=== PATIENT | male | born 1990 | race Caucasian/White ===

== ENCOUNTER 2024-06-15 17:05 | Emergency (ER) | payer SELFPAY ==
[2024-06-15 17:16] VITALS: BP 134/70; BMI 21.5
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
[2024-06-15] MEDS: SUBUTEX 4 MG SL (18:03)
== END 2024-06-15 18:09 ==
LOC: EMR 17:05
PROVIDERS: EMERGENCY PHYSICIAN Emergency Medicine
DX: Z02.89 Encounter for other administrative examinations (principal); S52.251A Displaced comminuted fracture of shaft of ulna, right arm, initial encounter for closed fracture; Y08.89XA Assault by other specified means, initial encounter; Z65.3 Problems related to other legal circumstances; Z53.29 Procedure and treatment not carried out because of patient's decision for other reasons
CPT/HCPCS: 99283; 29105; 73090; 73130

== ENCOUNTER 2025-02-20 11:09 | Inpatient (IN) | payer OTHER, SELFPAY ==
[2025-02-20] VITALS (27 sets, daily range): BP systolic 116–175; BP diastolic 66–107
--- NOTE | 2025-02-20 07:26 | ED.GENMED ---
History of Present Illness
General
Chief Complaint: Withdrawal Symptoms
Source: patient
Exam Limitations: clinical condition and altered mental status
Time Seen by Provider: 02/20/25 07:04
Nursing documentation reviewed up to this point in time: agreed with
History of Present Illness
History of Present Illness:
34-year-old male fentanyl 10-12 bags day
None for 48 hours, lives on the streets in [place] brought locally by his friends mother looking to get help
Past History
Past History
ED Past Medical History: None (He denies any medical history)
ED Past Surgical History: None
Social History
Alcohol: None
Drug: IVDA
Living: homeless
Review of Systems
Review of Systems
All Other Systems: Not applicable
Constitutional: Reports fatigue; Denies fever
ABD/GI: Reports abdominal pain, nausea, vomiting and diarrhea
: Reports no symptoms
Phy Exam
Physical Exam
Physical Exam:
Physical Exam
General: ill appearing
Neck: dry lips
Heart: tachy
Lungs: tachypnic
Abdomen: flat
Neuro: alert and oriented. no focal neurological deficits
Skin: multi tatooos
Psychiatric: anxous disheleved
Extremities: no edema.
Course
Orders/Labs/Results
Orders:
Orders
02/20/25 07:09
Rectal Temp- Treatment ONCE
02/20/25 07:12
Clonidine [Catapres] 0.1 mg PO NOW STA
Lorazepam [Ativan] 2 mg IV NOW STA
Ondansetron Injectable [Zofran] 4 mg IV NOW STA
02/20/25 07:16
0.9% Sodium Chloride 1000 ml [Nss] 2,000 ml IV BOLUS
02/20/25 07:29
CR Chest Portable - 1 View Urgent
Comment:
Reason For Exam: vomitng
Reason Study Needs to be Portable: Unable to Transport
02/20/25 07:33
Drug Screen, Urine [Urine Drug Abuse Screen] Urgent
02/20/25 07:41
Restraints - Non Violent As Directed
Justification-Patient:: 2-Protective Intervention
Restraint Type-: Soft Limb-4 point/4 rails
Apply From (date): 02/20/25
Apply from (time): 07:41
Remove (date): 02/21/25
Remove (time): 23:59
02/20/25 07:57
Olanzapine [Zyprexa] 5 mg IM NOW STA
02/20/25 08:00
Buprenorphine [Subutex] 4 mg SL QID
02/20/25 08:34
Alcohol Urgent
Complete Blood Count/With Diff Urgent
Comprehensive Metabolic Panel Urgent
Creatine Phosphokinase Urgent
Comment: ADD ON
Lactic Acid Urgent
Blood Culture Q30M
EDINSON Source: Blood/Venous
Specimen Description:
Blood Culture Q30M
EDINSON Source: Blood/Venous
Specimen Description:
02/20/25 08:51
Lorazepam [Ativan] 2 mg IV NOW STA
02/20/25 08:59
Add On- LAB Urgent
Tests Added?: cpk
Abnormal Lab Results
02/20/25
08:34
WBC 13.8 H 10^3/uL
(4.8-10.8)
Plt Count 610 H 10^3/uL
(130-400)
Abs Immat Gran (auto) 0.1 H 10^3/uL
(0-0.05)
Absolute Neuts (auto) 12.7 H 10^3/uL
(1.4-6.5)
Absolute Lymphs (auto) 0.6 L 10^3/uL
(1.2-3.4)
Neutrophils % 92.1 H %
(42.2-75.2)
Lymphocytes % 4.1 L %
(20.5-51.1)
02/20/25 08:34
Vital Signs
Initial and Last Documented VS:
Initial Vital Signs
Temp Pulse Resp BP Pulse Ox
99.0 F 153 26 126/90 94
02/20/25 06:52 02/20/25 06:52 02/20/25 06:52 02/20/25 06:52 02/20/25 06:52
Last Documented Vital Signs
Temp Pulse Resp BP Pulse Ox
100.3 F 153 26 126/90 94
02/20/25 07:09 02/20/25 06:52 02/20/25 06:52 02/20/25 06:52 02/20/25 06:52
MDM/Problems Addressed
Differential Diagnosis Includes:
Withdrawal dehydration electrolyte abnormality
MDM/Problems Addressed:
Narcotic withdrawal
*Radiology
Radiology exam reviewed: preliminary read by ED provider
*Pulse Oximetry
Patient hypoxic: no
*EKG
Interpreted by ED Provider?: Yes
Interpretation: abnormal
Comparison EKG: no comparison EKG present
Heart Rate: 130
Rate: tachycardiac
Rhythm: sinus
Ischemia: non-specific ST changes
*Senior Scheduler Interpretation
Rate: tachycardiac
Interpretation: abnormal
Heart Rate: 130
Rhythm: sinus
*Critical Care Note
Total Time (30-74mins, 75-104mins- exclusive of procedures): 32
Update Note
Update Note:
Patient in fairly severe withdrawal, will start IV fluids antiemetics withdrawal protocol, will check rectal temp tells me he smokes does not inject though he has been living on the streets
9 AM patient a bit better still tachycardic tachypneic no longer retching does have a fever cultures have been ordered chest x-ray pending consideration for empiric antibiotics consideration for Precedex
ED Attending Note
-
Portions of this chart may have been created with voice recognition software.� Occasional wrong word or��sound alike� substitutions may have occurred due to the inherent limitations of voice recognition software.
Discharge Plan
Departure
Prescriptions:
No Action
No Current Medications
0
Referrals:
UNKNOWN - PT NOT,INTERVIEWE [Family Provider] -
Interventions
Interventions:
*Risk Screen - Suicide Last Done: 02/20/25 06:52
*Neglect/Abuse Screening Last Done: 02/20/25 07:45
*ED COVID-19 Vaccine History Last Done: 02/20/25 07:45
ED- Neurological Assessment Last Done: 02/20/25 08:44
ED-Psychological Assessment Last Done: 02/20/25 08:44
Discharge Date and Time
Print Language: ETHIOPIAN
[2025-02-20] MEDS: CATAPRES 0.1 MG PO ×2 (07:33→14:43)
[2025-02-20] MEDS: SUBUTEX 4 MG SL (07:33)
[2025-02-20] MEDS: ZOFRAN 4 MG IV (07:36)
[2025-02-20] MEDS: ATIVAN 2 MG IV ×2 (07:36→09:00)
[2025-02-20] MEDS: ZYPREXA 5 MG IM (08:27)
[2025-02-20] MEDS: NSS 2000 IV (08:31)
[2025-02-20 08:58] LABS: % Basophils 0.2 % (0-2); % Immature Granulocytes 0.4 % (0-0.5); % Lymphocytes 4.1 % (20.5-51.1); % Monocytes 3.2 % (1.7-9.3); % Neutrophils 92.1 % (42.2-75.2); Absolute Immature Granulocytes 0.1 10^3/uL (0-0.05); Absolute Lymphocytes 0.6 10^3/uL (1.2-3.4); Absolute Monocytes 0.4 10^3/uL (0.1-0.6); Absolute Neutrophils 12.7 10^3/uL (1.4-6.5); Hematocrit 41.4 % (39.0-52.0); Hemoglobin 14.6 g/dL (13.0-18.0); Mean Corp Hgb Conc. 35.3 g/dL (33.0-37.0); Mean Corpuscular Hgb 29.6 pg (27.0-31.0); Mean Corpuscular Volume 83.8 fL (80.0-94.0); Mean Platelet Volume 9.6 fL (7.4-10.4); Nucleated Red Blood Cells % 0 % (-); Platelet Count 610 10^3/uL (130-400); Red Blood Cell Count 4.94 10^6/uL (4.70-6.10); Red Cell Dist. Width 12.9 % (11.5-14.5); White Blood Cell Count 13.8 10^3/uL (4.8-10.8)
[2025-02-20 09:11] LABS: Lactic Acid 3.9 mmol/L (0.7-2.0)
[2025-02-20 09:13] LABS: AST (SGOT) 23 U/L (17-59); Albumin 3.9 g/dl (3.5-5.0); Alkaline Phosphatase 85 U/L (38-126); Blood Urea Nitrogen 14 mg/dl (9-20); Calcium 10.1 mg/dl (8.4-10.2); Carbon Dioxide 30 mmol/L (22-30); Chloride 105 mmol/L (98-107); Creatine Phosphokinase 82 U/L (55-170); Glucose 168 mg/dl (70-99); Potassium 3.8 mmol/L (3.5-5.1); Sodium 150 mmol/L (135-145); Total Bilirubin 0.7 mg/dl (0.2-1.3); Total Protein 6.6 g/dl (6.3-8.2); eGFR > 60.00
[2025-02-20 09:19] LABS: ALT (SGPT) 42 U/L (0-50)
[2025-02-20] MEDS: BELBUCA 300 MCG BUCCAL ×5 (09:21→23:21)
[2025-02-20 09:27] LABS: Alcohol None Detected
[2025-02-20] MEDS: OFIRMEV 100 IV (09:28)
--- NOTE | 2025-02-20 09:42 | HPS.HSE ---
Family Physician
-
Family Physician: INTERVIEWE UNKNOWN - PT NOT
Chief Complaint
-
Altered mental status
History of Present Illness
Patient 34 years old male with history of polysubstance use disorder came into the hospital with mental status changes and fever. Patient unable to provide much information and most of the information gathered from medical records and ER staff.
Patient has been using fentanyl at least 10-12 bags every day and last use was about 48 hours ago and he lives on the streets in [facility] and he was brought in by his parents' friend trying to look for help. Patient reports nausea
and vomiting and diaphoresis. Patient has been agitated, tachycardic, tachypneic and found to have leukocytosis close to 14,000, fever up to 101.6 Fahrenheit and also hypernatremic to 150 as well as lactic acid of 3.9. Chest x-ray shows some
increased density. He had some cultures and was started on broad-spectrum antibiotics. He was referred to hospitalist service for further evaluation.
Medical History
Past Medical History
Past Medical History: Reports Other (Polysubstance abuse)
Past Surgical History: Reports None
Social History
Unable to obtain full social history at this time due to: Acuity
Family History
Family History: Not pertinent
Allergies / Home Medications
Allergies reflects when Allergies were last updated in [facility].
Home Medications with original date entered in [facility]
Allergy/Medication List:
Allergies
Allergy/AdvReac Type Severity Reaction Status Date / Time
No Known Allergies Allergy Verified 02/20/25 06:52
Home Medications
folic acid 1 mg tablet 02/20/25
quetiapine 300 mg tablet mg 02/20/25
sertraline 25 mg tablet mg 02/20/25
Review of Systems
-
Unable to obtain full review of systems at this time due to: Acuity
Physical Exam
Vital Signs
Vital Signs
Temp Pulse Resp BP Pulse Ox
100.3 F 134 26 116/93 98
02/20/25 09:00 02/20/25 09:30 02/20/25 09:30 02/20/25 09:24 02/20/25 09:30
Physical exam:
General: Acutely ill
HEENT: Normocephalic, Atraumatic and dry mucous Membranes
Respiratory: Clear to Auscultation; Negative Wheezes, Rales or Rhonchi
Cardiac: Regular Rhythm, tachycardic, and S1/S2
GI: Soft, tender and Nondistended
Musculoskeletal: No Clubbing, No Cyanosis and No Edema. Track feldman on bilateral antecubital fossa. Multiple tattoos
Neuro: Awake, Alert mildly disoriented.
Psych: Anxious, disheveled, appears probably limited judgment and insight
Physical Exam
General: Other
Laboratory Results
-
02/20/25 08:34
02/20/25 08:34
Laboratory Results
Lactic Acid 3.9 mmol/L (0.7-2.0) H 02/20/25 08:34
Total Bilirubin 0.7 mg/dl (0.2-1.3) 02/20/25 08:34
AST 23 U/L (17-59) 02/20/25 08:34
ALT 42 U/L (0-50) 02/20/25 08:34
Alkaline Phosphatase 85 U/L (38-126) 02/20/25 08:34
Data Reviewed
-
Diagnostic Radiology: Image Personally Visualized and interpreted
Lab Data: Labs Reviewed by me
Impression/Plan
-
IMPRESSION:
Patient 34 years old male with history of polysubstance abuse came into the hospital severe opioid withdrawal and probable sepsis. Patient at increased risk of morbidity and mortality and critically ill.
PLAN:
Toxic metabolic encephalopathy and severe opiate withdrawal with delirium:
Buprenorphine micro dosing protocol
Will need Precedex drip
Ativan oxycodone
IV fluid
Naloxone as needed
Cardiac monitoring
Sepsis:
Concerns for aspiration pneumonia but rule out bacteremia
IV antibiotics, IV Unasyn and vancomycin
Follow-up culture
Monitor clinical response
Trend lactate
Plan for echo
Hypernatremia:
Due to dehydration
Monitor electrolytes closely with IV hydration
DVT prophylaxis:
Lovenox SQ
CODE STATUS:
Full code
Total Critical Care Time__45___ minutes. I was immediately available to the patient and staff. I personally examined, reviewed labs, diagnostic images/reports, interpretations, treatment plans, discussed patient care with other providers and
family or caregivers (if patient is unable to make decisions), entered orders as appropriate and documented the medical record.
[2025-02-20] MEDS: DILAUDID 2 MG IV ×2 (09:43→11:56)
[2025-02-20] MEDS: ROCEPHIN 1000 MG IV (09:56)
[2025-02-20] MEDS: ZANAFLEX 4 MG PO (09:59)
[2025-02-20] MEDS: OXYCONTIN (CONTROLLED RELEASE) 40 MG PO ×3 (10:08→23:21)
[2025-02-20] MEDS: PRECEDEX 100 IV ×3 (11:20→19:29)
[2025-02-20] MEDS: LR 1000 IV ×2 (11:56→19:27)
--- NOTE | 2025-02-20 12:07 | CON.INTV ---
Addendum entered and electronically signed by Shayy Krishnan MD 02/21/25 07:18:
.
Original Note:
Consultation
Consultation Request
Date/Time Consultation Requested: 02/20/2025
Date/Time Consultation Performed: 02/20/2025
Medical History
-
Chief Complaint: acute narcotic withdrawal
History of Present Illness:
Mr. Andrea Boyd is a 34yo M w/o pmh arrived to ED 02/20 in acute opioid withdrawal. Uses 10-12 bags of fentanyl per day, last used 48 hrs ago. Lives on the streets in [place] and was brought by his friend's mother looking to get help. Found
to be febrile in ED with leukocytosis and tachycardia. CXR limited by rotation, R lobar consolidation.
Past Medical History
Past Medical History: None
Past Surgical History: None
Social History
Tobacco: Non-smoker
Alcohol: None
Drug: IVDA
Living: Homeless
Family History
Family History: Reviewed & Not Pertinent
Allergies / Home Medications
Allergies
Allergy/AdvReac Type Severity Reaction Status Date / Time
No Known Allergies Allergy Verified 02/20/25 06:52
Home Medications
�Medication �Instructions �Recorded �Confirmed �Last Taken �Type
No Meds [No Current Medications] 06/15/24 06/15/24 Unknown History
Review of Systems
-
Unable to Obtain full review of systems at this time due to: Acuity
History Source: Patient
Respiratory: No Symptoms
Cardiac: Chest Pain
Neuro: No Symptoms
Vitals / Labs / Diagnostic Testing
Vital Signs
Temp Pulse Resp BP Pulse Ox
100.3 F 124 31 135/81 98
02/20/25 09:00 02/20/25 11:46 02/20/25 11:46 02/20/25 11:00 02/20/25 11:30
Lab Data
02/20/25 08:34
02/20/25 08:34
Diagnostic Testing:
Physical Exam
-
HEENT: Normocephalic and Anicteric
Cardiovascular: S1/S2, Regular Rhythm and Other (tachycardia)
Respiratory: Clear and Accessory Resp Muscle Use
GI: Soft, Non Distended, Flat and Tender
Neurology: Awake
Skin: Warm, Good Color and Other (track feldman on b/l antecubital fossae)
General: Respiratory Distress, Chills and Sweats
Assessment
-
34yo M w/o pmh arrived to ED 02/20 in acute opioid withdrawal. Uses 10-12 bags of fentanyl per day, last used 48 hrs prior to arrival.
Opioid withdrawal with delirium
- IVF
- benadryl
- oxycodone, ativan
- naloxone as needed
- buprenorphine microdosing protocol
- EKG: sinus rhythm, tachycardia, prolonged QT
- UDS pending
Sepsis
- lactate 3.9, febrile, leukocytosis
- 1g ceftriaxone given in ED
- follow fever curve
- blood cx pending
- flu/covid/MRSA pending
- vbg, repeat lactate
- echo
Retching/vomiting, possible aspiration pneumonitis
- ppi
- aspiration precautions
- lipase pending
Agitation
- dexmedetomidine
- spit mask, restraints
Polycythemia, Hypernatremia possibly due to dehydration
- IVF
- repeat cmp
Diet: NPO
DVT ppx: lovenox
Code status: Full Code
[2025-02-20] MEDS: ATIVAN 1 MG IV ×2 (12:39→16:46)
--- NOTE | 2025-02-20 13:30 | PTCARENOTE ---
Received patient from ED. Transferred from stretcher to bed. Patient admitted for acute opiate withdrawal (actively uses fentanyl, last used > 48 hours ago). Initial COWS 29, in 4-Point Soft Non-Violent Restraints. Patient initially on 0.5mcg
Precedex, up-titrated to 1.5 mcg (Dr. Krishnan aware) as patient become aggressive/agitated with VAT RN and staff as they attempted to place Midline. Precedex down-titrated to 1.2 mcg. LR 125 mL/hour started after completion of 2L Fluid bolus started
by ED RN. AAOx2-3, RASS now -1 to -2. RA, lungs diminished, Spo2 100%. Has spit cochran on as patient is spitting up onto himself/towards staff. ST 110's-120's, intermittently to 150-160's. Now with L Upper Arm #20, RUE Midline. NPO, flat abdomen with
hypoactive bowel sounds. Placed condom cath #25 considering critical care status. Skin Intact.
Labs drawn, COVID/Flu/MRSA swab sent.
[2025-02-20 13:32] LABS: Venous Blood Gas B.E. 5.6 mmol/L (-4 to +4); Venous Blood Gas HCO3 29.8 mmol/L (22-27); Venous Blood Gas pCO2 41 mmHg (35-48); Venous Blood Gas pH 7.47 (7.32-7.43); Venous Blood Gas pO2 163 mmHg (30-50)
--- NOTE | 2025-02-20 13:35 | PHA.VAN.IN ---
Assessment
- Assessment
Renal Function: Appears similar to baseline (0.8)
Maximum Temperature: 101.6
Concomitant Antimicrobials: Ampicillin/Sulbactam
AUC Dosing Plan
- Dosing Variables
Dosing Weight (kg): 71.9
Dosing CrCl (ml/min): 125
Vd coefficient (L/kg): 0.7
- Empiric Dosing
Initial / Loading Dose: Vanco 2000mg loading pending administeration 02/20/25 ~1340
Maintenance Regimen: Vanco 1000mg Q8H Starting 2200
Estimated AUC (mcg*h/mL): 581
Estimated Peak (mcg*h/mL): 34.3
Estimated Trough (mcg/ml): 16.1
Estimated Half Life (H): 6.4
- Monitoring
No levels ordered at this time: Consider in the next few days
Pharmacokinetics Vancomycin I
- -
Patient Age: 34
Patient Sex: Male
Vancomycin Day #: 1
Indication: Skin And Soft Tissue
Requesting Provider: SARAVANAN
Pertinent Antimicrobial Allergies:
No known drug allergy
Height / Weight:
Actual Weight 71.9 kg
- Vital Signs / Lab Results
Temp Pulse Resp BP Pulse Ox
101.6 F H 110 33 168/96 97
02/20/25 12:38 02/20/25 13:15 02/20/25 13:15 02/20/25 13:15 02/20/25 13:00
Lab Results - Hematology
02/20/25
08:34
WBC 13.8 H
Lab Results - Chemistry
02/20/25
08:34
BUN 14
Creatinine 0.8
Albumin 3.9
02/20/25
08:34
Lactic Acid 3.9 H
[2025-02-20] MEDS: BENADRYL 25 MG IV (13:42)
[2025-02-20 13:44] LABS: Lipase 38 U/L (23-300)
[2025-02-20 13:44] LABS: Lactic Acid 0.9 mmol/L (0.7-2.0)
[2025-02-20 13:45] LABS: ALT (SGPT) 31 U/L (0-50); AST (SGOT) 17 U/L (17-59); Albumin 3.2 g/dl (3.5-5.0); Alkaline Phosphatase 64 U/L (38-126); Blood Urea Nitrogen 14 mg/dl (9-20); Calcium 8.8 mg/dl (8.4-10.2); Carbon Dioxide 29 mmol/L (22-30); Chloride 111 mmol/L (98-107); Glucose 122 mg/dl (70-99); Potassium 3.4 mmol/L (3.5-5.1); Sodium 149 mmol/L (135-145); Total Bilirubin 0.6 mg/dl (0.2-1.3); Total Protein 5.6 g/dl (6.3-8.2); eGFR > 60.00
[2025-02-20 13:56] LABS: COVID-19 Antigen Negative (Negative)
[2025-02-20] MEDS: VANCOCIN 540 MG IV (14:08)
[2025-02-20] MEDS: PROTONIX 20 MG PO (14:43)
[2025-02-20] MEDS: KCL 40 MEQ PO (14:43)
[2025-02-20] MEDS: UNASYN IV ×2 (14:44→19:19)
[2025-02-20] MEDS: ROXICODONE 20 MG PO ×2 (15:42→20:58)
--- NOTE | 2025-02-20 16:00 | PTCARENOTE ---
Patient remains on Precedex drip at 1.2mcg. Assessment largely unchanged from prior. Continues to spit onto self/gown/side-rails. Manages to, while in four point restraints, rip off spit cochran/procedural mask. Had not voided during shift. Bladder
scanned for 313mL, patient then had spontaneous void of 250 mL. Ramona urine. Sent urine studies that had been ordered.
[2025-02-20 17:02] LABS: Urine Albumin 2+ (Neg - Trace); Urine Bilirubin Negative (Negative); Urine Character Clear (Clear); Urine Color Yellow; Urine Glucose Negative (Negative); Urine Ketone 2+ (Negative); Urine Leukocyte Negative (Negative); Urine Nitrite Negative (Negative); Urine Occult Blood Negative (Negative); Urine Specific Gravity 1.015 (<1.030); Urine Urobilinogen Negative (Neg - 1+)
[2025-02-20 17:11] LABS: Urine Granular Cast 0-2 /LPF (0); Urine Mucus Few; Urine Squamous Cell 0-2 /LPF (Few)
[2025-02-20 17:12] LABS: Urine Bacteria Few (Negative); Urine Red Blood Cell 0-2 /HPF (0-2)
[2025-02-20 17:16] LABS: Amphetamines Negative (Negative); Barbiturates Negative (Negative); Benzodiazepines Positive (Negative); Buprenorphine Positive (Negative); Cocaine Positive (Negative); Methadone Negative (Negative); Methamphetamines Negative (Negative); Opiates Positive (Negative)
[2025-02-20 17:17] LABS: Marijuana Negative (Negative); Phencyclidine Negative (Negative); Tricyclic Antidepressants Negative (Negative)
[2025-02-20 17:25] LABS: Fentanyl, Urine Positive (Negative)
[2025-02-20 17:26] LABS: Alcohol None Detected
[2025-02-20] MEDS: LOVENOX 40 MG SC (17:57)
--- NOTE | 2025-02-20 18:05 | PTCARENOTE ---
Loosened/removed three out of four restraints on trial. Patient has been cooperative/not pulling at lines. Still has right upper extremity secure to bed.
Bed Alarm active.
[2025-02-20] MEDS: DILAUDID 1 MG IV (19:40)
--- NOTE | 2025-02-20 20:40 | PTCARENOTE ---
Father of pt called- José Antonio Oliver- wanted to be added to contact list. pt agreed to allow information to be given to father. José Antonio`s phone number [phone]. Father updated on pt`s status
[2025-02-20] MEDS: VANCOCIN 200 IV (20:59)
[2025-02-21] VITALS (16 sets, daily range): BP systolic 117–161; BP diastolic 67–102; PULSE 51–57; BMI 22.8
--- NOTE | 2025-02-21 00:35 | PTCARENOTE ---
pt reassessed. no changes in pt assessment. pt sleeping but easily arousable. call mckeon in reach, safe environment maintained.
[2025-02-21] MEDS: LR 1000 IV ×2 (03:29→09:42)
[2025-02-21] MEDS: UNASYN IV ×2 (03:43→07:27)
[2025-02-21] MEDS: BELBUCA 300 MCG BUCCAL ×2 (03:46→07:27)
[2025-02-21] MEDS: PRECEDEX 100 IV (03:49)
--- NOTE | 2025-02-21 03:59 | PTCARENOTE ---
new CC placed #25. pt refused all other hygiene care.
[2025-02-21 04:11] LABS: % Basophils 0.2 % (0-2); % Eosinophils 0.4 % (0-6); % Immature Granulocytes 0.4 % (0-0.5); % Monocytes 8.5 % (1.7-9.3); % Neutrophils 62.5 % (42.2-75.2); Absolute Lymphocytes 1.4 10^3/uL (1.2-3.4); Absolute Monocytes 0.4 10^3/uL (0.1-0.6); Absolute Neutrophils 3.2 10^3/uL (1.4-6.5); Hematocrit 30.7 % (39.0-52.0); Hemoglobin 10.4 g/dL (13.0-18.0); Mean Corp Hgb Conc. 33.9 g/dL (33.0-37.0); Mean Corpuscular Hgb 28.9 pg (27.0-31.0); Mean Corpuscular Volume 85.3 fL (80.0-94.0); Mean Platelet Volume 9.2 fL (7.4-10.4); Nucleated Red Blood Cells % 0 % (-); Platelet Count 245 10^3/uL (130-400); Red Cell Dist. Width 13.2 % (11.5-14.5)
[2025-02-21 04:18] LABS: ALT (SGPT) 24 U/L (0-50); AST (SGOT) 16 U/L (17-59); Albumin 2.5 g/dl (3.5-5.0); Alkaline Phosphatase 48 U/L (38-126); Blood Urea Nitrogen 12 mg/dl (9-20); Calcium 8.5 mg/dl (8.4-10.2); Carbon Dioxide 30 mmol/L (22-30); Chloride 112 mmol/L (98-107); Direct Bilirubin 0.1 mg/dl (0.0-0.4); Estimated Creatinine Clearance > 125 ml/min; Glucose 103 mg/dl (70-99); Potassium 3.3 mmol/L (3.5-5.1); Sodium 145 mmol/L (135-145); Total Bilirubin 0.5 mg/dl (0.2-1.3); Total Protein 4.6 g/dl (6.3-8.2); eGFR > 60.00
[2025-02-21] MEDS: KCL 270 MEQ IV (04:51)
[2025-02-21] MEDS: VANCOCIN 200 IV ×2 (04:51→13:28)
--- NOTE | 2025-02-21 06:10 | DOWNTIME ---
There was a LOCK8 Client Loop Machine Operator Downtime on 02/21/2025 from 0200 to 02/22/2024 at 0318 . Downtime documentation of patient's care, including medication administrations, has been reconciled in the electronic record per guidelines. Refer to the
patient's paper chart under the miscellaneous tab to see printed paper medication records and downtime forms.
[2025-02-21] MEDS: OXYCONTIN (CONTROLLED RELEASE) 40 MG PO (07:26)
[2025-02-21] MEDS: PROTONIX 20 MG PO (07:26)
--- NOTE | 2025-02-21 07:44 | PTCARENOTE ---
pt received from previous rn- aox3, nsr on monitor, room air. pt with no complaints at this time. precedex being weaned as tolerated, ivf continue per order. pt educated about plan of care- verbalized understanding. pt turns and repositions self.
all safety precautions in place, call mckeon within reach.
--- NOTE | 2025-02-21 08:16 | PHA.VAN.FU ---
Vancomycin Assessment / Plan
- Assessment
Renal Function: Stable (0.7)
WBC's are: Trending Down (13.8->5.0)
In the past 24 hrs, patient has been: Febrile (101.6)
Concomitant Antimicrobials: Ampicillin/Sulbactam
- Dosing Plan
Continue: Vanco 1000mg Q8H
- Monitoring Plan
No level(s) ordered at this time: Consider in the next few days
- Follow Up
Pharmacy will continue to follow.
Vancomycin Follow UP
- -
Patient Age: 34
Patient Sex: Male
Vancomycin Day #: 2
Indication: Skin And Soft Tissue
Requesting Provider: SARAVANAN
Pertinent Antimicrobial Allergies:
No known drug allergy
Height / Weight:
Height 5 ft 10 in
Actual Weight 72 kg
- Vital Signs / Lab Results
Temp Pulse Resp BP Pulse Ox
99.3 F 67 14 131/75 97
02/20/25 19:15 02/21/25 05:00 02/21/25 05:00 02/21/25 05:00 02/21/25 07:43
Lab Results - Hematology
02/20/25 02/21/25
08:34 03:37
WBC 13.8 H 5.0
Lab Results - Chemistry
02/20/25 02/20/25 02/21/25
08:34 13:12 03:37
BUN 14 14 12
Creatinine 0.8 0.7 0.7
Estimated Creat Clear > 125
Albumin 3.9 3.2 L 2.5 L
02/20/25 02/20/25
08:34 13:12
Lactic Acid 3.9 H 0.9
Lab Results - Urine
02/20/25
16:37
Urine Nitrite (Reflex) Negative
Leukocyte Esterase Rfl Negative
Ur Squamous Epith Cells 0-2
Microbiology Results
02/20/25 13:12 Influenza Types A & B (CHRISTY) - Final
Nasal Swab Negative for Influenza A & B, NAAT
Negative results must be combined with clinical observations
and patient history.
Nucleic Acid Amplification test (NAAT)performed on the
SABIA platform.
--- NOTE | 2025-02-21 08:20 | W.PN.INTV ---
Today's Communication / Plan
Recommendations
- can be downgraded
- zofran for nausea
Assessment
-
34yo M w/o pmh arrived to ED 02/20 in acute opioid withdrawal. Uses 10-12 bags of fentanyl per day, last used 48 hrs prior to arrival.
Opioid withdrawal with delirium
Substance use
- IVF
- benadryl
- oxycodone, ativan
- naloxone as needed
- buprenorphine microdosing protocol
- 02/20 EKG: sinus rhythm, tachycardia, prolonged QT
- 02/21 EKG: NSR, normal QT
- UDS positive for opiates, benzodiazepines, and cocaine
- avoid BB
- norvasc for HTN
Sepsis
- lactate 3.9 on admission, febrile, leukocytosis
- 1g ceftriaxone given in ED
- lactate improving, fever and leukocytosis resolved
- follow fever curve
- blood cx: no growth at 24h
- flu/covid negative
- MRSA pending
- echo: LVEF 60-65%, no evidence of vegetation
Retching/vomiting, possible aspiration pneumonitis
- ppi
- aspiration precautions
- lipase wnl
- given benadryl, zofran
Polycythemia, Hypernatremia possibly due to dehydration
- resolved
Diet: regular
DVT ppx: lovenox
Code status: Full Code
Subjective Dataa
Subjective Data
Date of Service:
Date of Service: February 21, 2025
Subjective:
No acute overnight events. Precedex drip stopped
Review of Systems
GI: Nausea
Objective Data
Data Reviewed
Vital Signs / I&O / Oxygen:
Vital Signs
Temp Pulse Resp BP Pulse Ox
99.3 F 67 14 131/75 97
02/20/25 19:15 02/21/25 05:00 02/21/25 05:00 02/21/25 05:00 02/21/25 07:43
Intake and Output
02/20/25 02/21/25 02/22/25
06:59 06:59 06:59
Intake Total 2749.4 / 2952.7 203.3 / 203.3
Output Total 300 / 300
Balance 2449.4 / 2652.7 203.3 / 203.3
SaO2 97
Physical Exam
General: Comfortable
HEENT: Normocephalic, Anicteric and Moist Mucous Membranes
Cardiovascular: S1-S2 and Regular Rhythm
Respiratory: Clear and Non-Labored Respirations
GI: Soft, Non Distended, Flat, Non Tender and Normal Bowel Sounds
Neurology: Awake and AO x 3
Skin: Warm, Dry and Good Color
Labs/Micro/Reports
Lab Data
02/21/25 03:37
02/21/25 03:37
Microbiology
02/20/25 13:12 Nasal Swab Influenza Types A & B ([facility]) - Final
Negative for Influenza A & B, NAAT
Negative results must be combined with clinical observations
and patient history.
Nucleic Acid Amplification test (NAAT)performed on the
[employer] platform.
--- NOTE | 2025-02-21 08:52 | W.PN.HOSP.TC ---
Today's Communication/Plan
-
IV fluids. Narcotic tapering.
Assessment / Plan
Assessment / Plan
Physical exam:
General: Acutely ill
HEENT: Normocephalic, Atraumatic and dry mucous Membranes
Respiratory: Clear to Auscultation; Negative Wheezes, Rales or Rhonchi
Cardiac: Regular Rhythm, tachycardic, and S1/S2
GI: Soft, non tender and Nondistended
Musculoskeletal: No Clubbing, No Cyanosis and No Edema. Track feldman on bilateral antecubital fossa. Multiple tattoos
Neuro: Awake, Alert and oriented. No neurological deficits. Tremors present
Psych: Anxious, normal judgment and insight today
A/P:
Toxic metabolic encephalopathy and severe opiate withdrawal with delirium:
Buprenorphine micro dosing protocol
Off Precedex drip
Ativan and oxycodone
IV fluid
Naloxone as needed
Cardiac monitoring
[facility] transferred to IMU
Patient wants to sign AGAINST MEDICAL ADVICE-he has the right to do it and he has competence for it although I recommended against it. He did sign it but he was going to think about it if he wants to stay. He is definitely not ready for medical
discharge.
Sepsis:
Concerns for aspiration pneumonia but rule out bacteremia
IV antibiotics, IV Unasyn and vancomycin
Follow-up culture
Monitor clinical response
Trend lactate
Echo unremarkable for acute finding
Hypernatremia:
Due to dehydration
Monitor electrolytes closely with IV hydration
DVT prophylaxis:
Lovenox SQ
CODE STATUS:
Full code
Total time spent on today's encounter was 52 minutes which included time spent in counseling the patient/family regarding diagnosis and treatment plan as listed above, goals of care, and symptom management. Case was discussed with nursing staff,
specialists, and care coordinators/case management. All labs and imaging personally reviewed by me. Remainder the time spent in detailed review of previous records, lab data, imaging, and other medical provider documentation.
Anticipated Discharge: > 48 hours
Subjective/Interval History
-
Date of Service: February 21, 2025
Patient more alert today. Still shaky and anxious.
Objective Data
-
Labs:
Laboratory Results
02/21/25
03:37
WBC 5.0
Hgb 10.4 L D
Hct 30.7 L
Plt Count 245 D
Sodium 145
Potassium 3.3 L
Chloride 112 H
Carbon Dioxide 30
BUN 12
Creatinine 0.7
Glucose 103 H
Calcium 8.5
Total Bilirubin 0.5
AST 16 L
ALT 24
Alkaline Phosphatase 48
Vital Signs:
Vital Signs
Temp Pulse Resp BP Pulse Ox
98.8 F 59 24 157/90 97
02/21/25 08:00 02/21/25 08:17 02/21/25 08:17 02/21/25 08:17 02/21/25 08:17
I&O
02/20/25 02/21/25 02/22/25
06:59 06:59 06:59
Intake Total 2749.4 / 2952.7 395.8 / 395.8
Output Total 300 / 300
Balance 2449.4 / 2652.7 395.8 / 395.8
[2025-02-21] MEDS: NORVASC 2.5 MG PO (09:41)
[2025-02-21] MEDS: KCL 40 MEQ PO (09:41)
[2025-02-21] MEDS: ZANAFLEX 2 MG PO (09:41)
[2025-02-21] MEDS: ZOFRAN 4 MG PO (10:36)
--- NOTE | 2025-02-21 11:20 | PTCARENOTE ---
pt with increased qt on monitor, Dr. Krishnan aware, additional ekg ordered. pt refusing despite education.
[2025-02-21] MEDS: BENADRYL 25 MG IV (11:57)
[2025-02-21] MEDS: DILAUDID 1 MG IV ×2 (11:58→13:27)
--- NOTE | 2025-02-21 11:59 | CM ---
CM following re: discharge planning.
Reviewed pt's chart, met with pt.
Pt is a 34 year old male, admitted with primary dx of Opioid withdrawal with delirium. Substance use Per chart review, pt uses 10-12 bags of fentanyl per day, last used 48 hours prior to arrival.
Pt presents sitting on the bed, expressed his unhappy feelings to participate in the interview. Pt made it very clear that he will have only one answer to all my questions - 'NO'. Answered 'NO' to meet with [facility] team. Pt did say he has a place to
live and stated 'father'. CM made an attempt to engage the pt to a conversation and he has been repeating 'NO' even this CM did not complete a question.
At the end of not successful attempt to engage the pt in conversation pt did say: 'I will go home, do not bother me'.
D/C plan: home when medically stable.
CM will follow with discharge plan updates as hospitalizations progresses.
[2025-02-21] MEDS: SUBUTEX SL (12:04)
--- NOTE | 2025-02-21 12:05 | SUR.OPER ---
pt anxious trying to get out of bed, increase cows score, see mar. refusing ekg at this time. all safety precautions remain in place. pt refusing subutex despite education. Dr. Krishnan aware, all safety precautions remain in place.
--- NOTE | 2025-02-21 12:05 | PTCARENOTE ---
Addendum entered by Mary Conner RN 02/21/25 12:17:
Dr. Stinson remains aware
Original Note:
pt trying to climb oob, increase cows score, see mar. refusing ekg at this time. all safety precautions remain in place. pt refusing subutex despite education
[2025-02-21] MEDS: CATAPRES 0.1 MG PO (12:52)
[2025-02-21] MEDS: ROXICODONE 20 MG PO (12:52)
[2025-02-21] MEDS: SUBUTEX 2 MG SL (12:53)
--- NOTE | 2025-02-21 13:51 | PTCARENOTE ---
pt increasingly restless, wreching and nauseous, Dr. Krishnan at bedside- ordered to give diluadid- see mar. pt refusing vitals and ekg.
--- NOTE | 2025-02-21 14:20 | W.DCSUMMARY ---
Discharge Summary
Discharge Data
Date of Admission: 02/20/25
Date of Discharge: 02/21/25
-
Pending Results: No
Hospital Course
Patient 34 years old male with history of polysubstance abuse, reported smoking opiates, came into the hospital mental status changes and fever as well as nausea and vomiting and diarrhea. Patient reported to have heavy use of fentanyl bags prior
to coming to the hospital and he was in quite severe withdrawal as well as evidence of sepsis. Patient was initiated on microdosing opiate protocol as well as Precedex drip. He was also initiated on aggressive IV fluids and IV antibiotics.
Transthoracic echocardiogram did not reveal any vegetations. Blood cultures remain no growth so far. Patient continued to be treated for his withdrawal treatment and IV antibiotics for his active infection but he is alert and oriented and now that
he feels better he did signed AGAINST MEDICAL ADVICE. We discussed risk and benefits and we did not recommend to do that but he understands risk including but not limited to worsening withdrawal, worsening sepsis, and .
Discharge duration: 35 minutes
Discharge Plan
-
Patient Disposition: Against Medical Advice
Diet: Regular
Activity: As tolerated
Blood Work: PCP to order CBC, BMP within 1 week
Referrals:
Primary care, provider [Other] - in less than 1 week
Prescriptions:
No Action
quetiapine 300 mg tablet
300 mg PO HS
sertraline 25 mg tablet
25 mg PO DAILY
folic acid 1 mg tablet
1 mg PO DAILY
pantoprazole 40 mg Tablet,Delayed Release (Dr/Ec)
40 mg PO DAILY
Discharge Date and Time
Discharge Date/Time: 02/21/25 14:00
Print Language: SLOVAK
--- NOTE | 2025-02-21 14:23 | VATNOTE ---
Midline D/C'd, pt leaving AMA. TCL retrieved 15cm. Pressure dressing applied.
--- NOTE | 2025-02-21 14:46 | PTCARENOTE ---
pt wanting to leave Dr. Wanda almanza at bedside, education and risk factors of leaving provided to patient-pt signed form at 1400. midline and iv removed. pt escorted out by security.
== END 2025-02-21 14:00 | disposition left against medical advice (07) | DRG 871 ==
LOC: ICU 11:09
PROVIDERS: ADMITTING PHYSICIAN Hospitalist; CONSULT PHYSICIAN Internal Medicine; EMERGENCY PHYSICIAN Emergency Medicine
DX: A41.9 Sepsis, unspecified organism (principal); J18.9 Pneumonia, unspecified organism; J69.0 Pneumonitis due to inhalation of food and vomit; F11.23 Opioid dependence with withdrawal; Z59.02 Unsheltered homelessness; E87.0 Hyperosmolality and hypernatremia; Z53.29 Procedure and treatment not carried out because of patient's decision for other reasons; E86.0 Dehydration; Z11.52 Encounter for screening for COVID-19
CPT/HCPCS: 71045; 80053; 80306; 80307; 81003; 81015; 82077; 82248; 82550; 82805; 83605; 83690; 83735; 85025; 87040; 87070; 87502; 87811; 93005; 93306; 96361; 96372; 96374; 96375; 96376; 99291; J2358